=== PATIENT | male | born 1975 | race American Indian/Alaskan Native ===

== ENCOUNTER 2018-10-24 15:25 | Emergency (ER) | payer SELFPAY ==
[2018-10-24] MEDS ORDERED: DILAUDID IV ONE (16:16)
[2018-10-24] MEDS ORDERED: ZOFRAN IV ONE (16:16)
[2018-10-24] MEDS ORDERED: NACL 0.9% 1000 ML 1,000 ML IV ONE (16:16)
[2018-10-24 16:45] LABS: Basophils # (Auto) 0.1 K/mm3 (0.0-0.1); Basophils % (Auto) 0.7 % (0.0-1.8); Eosinophils % (Auto) 0.2 % (0.0-4.3); Lymphocytes % (Auto) 17.1 % (13.4-35.0); Mean Corpuscular HGB Conc 37 % (32-34); Mean Corpuscular Volume 89 fl (84-94); Monocytes # (Auto) 0.9 K/mm3 (0.0-0.8); Monocytes % (Auto) 7.8 % (0.0-7.3); Platelet Count 275 K/mm3 (140-440); Red Cell Distribution Width 12.2 % (13.2-15.2)
[2018-10-24 16:46] LABS: Hemoglobin 14.7 gm/dl (11.8-15.2)
[2018-10-24 16:56] LABS: INR 1.18 (0.87-1.13)
[2018-10-24] MEDS ORDERED: ALUM-MAG HYDROX-SIMETH 200-200-20MG/5ML PO ONE (17:26)
[2018-10-24 17:27] LABS: Blood Urea Nitrogen 8 mg/dL (9-20)
[2018-10-24 17:43] LABS: Alanine Aminotransferase 28 units/L (7-56); Albumin 3.8 g/dL (3.9-5); BUN/Creatinine Ratio 13; Blood Urea Nitrogen 8 mg/dL (9-20); Calcium 9.2 mg/dL (8.4-10.2); Hemolysis Index 17
--- NOTE | 2018-10-24 19:01 | Emergency Department Report ---
ED Abdominal Pain HPI - General Chief Complaint: Abdominal Pain Stated Complaint: ODILON SWARTZ Time Seen by Provider: 10/24/18 16:16 Source: patient Mode of arrival: Stretcher Limitations: No Limitations - History of Present Illness Initial Comments: 43 year-old male coming in with abdominal pain starting on this morning patient denies any history of such pain. he states that his pain is accompanied by nausea, vomiting but denies any urinary symptoms or diarrhea. Patient has not taking any medication at home for his symptoms. He denies any exacerbating factors. He denies any alleviating factors. He denies any recent travel, or u nusual foods. He denies any sick contacts. Severity scale (0 -10): 0 - Related Data Previous Rx's Medication Instructions Recorded Last Taken Type Azithromycin [Zithromax Z-GAYATHRI] 250 mg PO DAILY #6 tablet 10/24/18 Unknown Rx Ranitidine HCl [Zantac] 150 mg PO DAILY #30 tablet 10/24/18 Unknown Rx Allergies Allergy/AdvReac Type Severity Reaction Status Date / Time No Known Allergies Allergy Unverified 10/24/18 15:52 ED Review of Systems ROS: Stated complaint: ODILON SWARTZ Other details as noted in HPI ED Past Medical Hx - Past Medical History Previous Medical History?: Yes Hx Psychiatric Treatment: Yes (schizophrenia) - Surgical History Past Surgical History?: No - Social History Smoking Status: Never Smoker Substance Use Type: None - Medications Home Medications: Home Medications Medication Instructions Recorded Confirmed Last Taken Type Azithromycin [Zithromax Z-GAYATHRI] 250 mg PO DAILY #6 tablet 10/24/18 Unknown Rx Ranitidine HCl [Zantac] 150 mg PO DAILY #30 tablet 10/24/18 Unknown Rx ED Physical Exam - General Limitations: No Limitations General appearance: alert, in no apparent distress - Head Head exam: Present: atraumatic - Eye Eye exam: Present: normal appearance, PERRL, EOMI - ENT ENT exam: Present: normal exam - Neck Neck exam: Present: normal inspection - Respiratory Respiratory exam: Present: normal lung sounds bilaterally - Cardiovascular Cardiovascular Exam: Present: regular rate, normal rhythm - GI/Abdominal GI/Abdominal exam: Present: soft, normal bowel sounds - Neurological Exam Neurological exam: Present: alert, oriented X3 - Psychiatric Psychiatric exam: Present: normal affect ED Course Vital Signs 10/24/18 10/24/18 10/24/18 15:40 15:48 16:00 Temperature 98.0 F Pulse Rate 84 Respiratory 18 Rate Blood Pressure 141/86 153/87 Blood Pressure [Left] O2 Sat by Pulse 96 96 95 Oximetry 10/24/18 10/24/18 10/24/18 16:30 17:00 17:30 Temperature Pulse Rate Respiratory Rate Blood Pressure 154/90 134/81 134/81 Blood Pressure [Left] O2 Sat by Pulse 96 96 97 Oximetry 10/24/18 10/24/18 10/24/18 18:15 18:31 19:00 Temperature Pulse Rate Respiratory Rate Blood Pressure 170/100 158/88 Blood Pressure [Left] O2 Sat by Pulse 95 96 97 Oximetry 10/24/18 19:30 Temperature 99.2 F Pulse Rate 84 Respiratory 12 Rate Blood Pressure Blood Pressure 158/85 [Left] O2 Sat by Pulse 95 Oximetry ED Medical Decision Making - Lab Data Result diagrams: 10/24/18 16:33 10/24/18 17:14 Critical care attestation.: If time is entered above; I have spent that time in minutes in the direct care of this critically ill patient, excluding procedure time. ED Disposition Clinical Impression: Pneumonia Qualifiers: Pneumonia type: due to unspecified organism Laterality: left Lung location: lower lobe of lung Qualified Code(s): J18.1 - Lobar pneumonia, unspecified organism Abdominal pain Qualifiers: Abdominal location: generalized Qualified Code(s): R10.84 - Generalized abdominal pain Disposition: DC-01 TO HOME OR SELFCARE Is pt being admited?: No Does the pt Need Aspirin: No Condition: Stable Instructions: Bacterial Pneumonia (ED) Prescriptions: Ranitidine HCl [Zantac] 150 mg PO DAILY #30 tablet Azithromycin [Zithromax Z-GAYATHRI] 250 mg PO DAILY #6 tablet Referrals: DEEPA BUSH MD [Primary Care Provider] - 3-5 Days
--- NOTE | 2018-10-24 19:46 | Cat Scan Report ---
PROCEDURE: CT ABDOMEN PELVIS W CON TECHNIQUE: Computerized axial tomography of the abdomen and pelvis was performed after the administr ation of IV iodinated nonionic contrast. CT DOSE LENGTH PRODUCT: 4592.7 mGycm HISTORY: Abdominal Pain COMPARISONS: None . FINDINGS: Visualized lower thorax: No significant abnormality. Mild bilateral basal atelectasis. Patchy posteri or left lower lobe mild infiltrate. Liver: Mildly fatty infiltrated. Not hypertrophied. Spleen: Mildly enlarged. Gallbladder and biliary system: Normal. Pancreas: Normal. Adrenals: Normal. 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 GI tract: Normal. Lymph nodes and mesentery: Small mesenteric arcade lymph nodes.. Vasculature: Normal.. Bladder: Normal. Reproductive organs: Normal. Peritoneum: No free fluid. Musculoskeletal structures: Focal thoracolumbar kyphosis due to multilevel degenerative wedging and m ultilevel bridging osteophytes without focal acute compression fracture. L3 superior endplate is mild ly compressed with mild sclerosis, less than 20%. Associated vacuum disc. Other: Small bilateral inguinal hernias containing fat.. IMPRESSION: The type of abdominal pain reported is not specified. L3 approximately 20% compression fracture, chronicity is unknown. Mildly fatty liver. Mild splenomegaly. Patchy posterior left lower lobe pneumonia/early infiltrate and atelectasis. This document is electronically signed by Stella Fenton MD., October 24 2018 07:44:24 PM ET
[2018-10-24 19:53] VITALS: BP 158/85
== END 2018-10-24 22:40 | disposition home or self-care (01) ==
LOC: ED 15:25 → EEVIPCON 15:25 → ED 22:40
DX: J18.9 Pneumonia, unspecified organism (principal); R10.9 Unspecified abdominal pain; F20.9 Schizophrenia, unspecified; Z79.899 Other long term (current) drug therapy
CPT/HCPCS: 36415; 74177; 80053; 82565; 83690; 84520; 85025; 85610; 96361; 96374; 96375; 99285; J1170; J2405; J7030; Q9967